=== PATIENT | male | born 1955 | race Caucasian/White ===

== ENCOUNTER 2016-03-20 16:09 | Inpatient (IN) | payer MEDICARE ==
[~2016-03-20] VITALS: Ht 182.9 cm; Wt 62.2 kg
[2016-03-20] MEDS ORDERED: SODIUM CHLORIDE 0.9% 1,000 ML ONE (21:18)
[2016-03-20] MEDS ORDERED: SODIUM CHLORIDE 0.9% 100 ML IV ONE (21:45)
[2016-03-20] MEDS ORDERED: CEFTRIAXONE 1 GM VIAL ONE (21:45)
[2016-03-20] MEDS ORDERED: HALOPERIDOL 5 MG/ML VIAL ONE (22:21)
[2016-03-20] MEDS ORDERED: DIPHENHYDRAMINE 50 MG/ML VIAL ONE (22:21)
[2016-03-20] MEDS ORDERED: LORAZEPAM 2 MG/ML VIAL ONE (22:22)
[2016-03-21] VITALS (9 sets, daily range): BP systolic 100–139; RESP 13–16; TEMP 97.4–98.6; Ht 182.9 cm; Wt 62.2 kg
[2016-03-21] MEDS ORDERED: DIPHENHYDRAMINE 50 MG/ML VIAL ONE (01:43)
[2016-03-21] MEDS ORDERED: LORAZEPAM 2 MG/ML VIAL ONE (01:44)
[2016-03-21] MEDS ORDERED: HALOPERIDOL 5 MG/ML VIAL ONE (01:44)
[2016-03-21] MEDS ORDERED: BISACODYL 10 MG SUPP RECTAL PRN (03:15)
[2016-03-21] MEDS ORDERED: SALINE FLUSH 10 ML FLUSH PRN (03:15)
[2016-03-21] MEDS ORDERED: ALU/MAG/SIM 30 ML UDC PO PRN (03:15)
[2016-03-21] MEDS ORDERED: BISACODYL EC 5 MG TAB PO PRN (03:15)
[2016-03-21] MEDS ORDERED: HALOPERIDOL 5 MG/ML VIAL IV ONE (03:15)
[2016-03-21] MEDS ORDERED: ONDANSETRON 4 MG VIAL IV PRN (03:15)
[2016-03-21] MEDS: SODIUM CHLORIDE 0.9% FLUSH BAG 500 ML IV SCH (08:47)
[2016-03-21] MEDS: SALINE FLUSH 10 ML FLUSH SCH ×2 (08:48→20:56)
[2016-03-21] MEDS: CEFTRIAXONE 1 GM in SODIUM CHLORIDE 0.9% 50 ML IV SCH (08:48)
[2016-03-21] MEDS: LACT RINGERS 1,000 ML IV SCH (13:13)
[2016-03-21] MEDS: LORAZEPAM 2 MG/ML VIAL IV PRN (20:55)
[2016-03-21] MEDS: TRAZODONE 50 MG TAB PO SCH (20:56)
[2016-03-22] MEDS: THIAMINE 200 MG/2 ML VIAL IM SCH ×3 (00:59→15:08)
[2016-03-22 03:29] VITALS: BP_SYST 131; RESP 16; TEMP 97.5
[2016-03-22] MEDS: SODIUM CHLORIDE 0.9% FLUSH BAG 500 ML IV SCH (06:00)
[2016-03-22 07:19] VITALS: BP_SYST 119; RESP 16; TEMP 97.5
[2016-03-22] MEDS: SALINE FLUSH 10 ML FLUSH SCH ×2 (08:00→20:00)
[2016-03-22] MEDS: CEFTRIAXONE 1 GM in SODIUM CHLORIDE 0.9% 50 ML IV SCH (08:53)
[2016-03-22 11:50] VITALS: BP_SYST 129; RESP 16; TEMP 97.6
[2016-03-22] MEDS: COMBIGAN OP SOLN EYE LT SCH ×2 (12:11→20:49)
[2016-03-22] MEDS: PREDNISOLONE ACET 1% OP SUSP EYE LT SCH ×3 (13:00→20:48)
[2016-03-22 15:30] VITALS: BP_SYST 131; RESP 18; TEMP 97.6
[2016-03-22] MEDS: LACT RINGERS 1,000 ML IV SCH (16:11)
[2016-03-22] MEDS: LORAZEPAM 2 MG/ML VIAL IV PRN (18:58)
[2016-03-22 19:39] VITALS: BP_SYST 140; RESP 20; TEMP 99.1
[2016-03-22] MEDS: BIMATOPROST 0.01% OP SOLN 2.5 ML EYE LT SCH (20:49)
[2016-03-22] MEDS: TRAZODONE 50 MG TAB PO SCH (20:50)
[2016-03-23] VITALS (7 sets, daily range): BP systolic 113–184; RESP 18–20; TEMP 97.3–99
[2016-03-23] MEDS: LORAZEPAM 2 MG/ML VIAL IV PRN ×3 (05:29→16:12)
[2016-03-23] MEDS: SODIUM CHLORIDE 0.9% FLUSH BAG 500 ML IV SCH (06:00)
[2016-03-23] MEDS: SALINE FLUSH 10 ML FLUSH SCH ×2 (09:39→20:00)
[2016-03-23] MEDS: PREDNISOLONE ACET 1% OP SUSP EYE LT SCH ×4 (09:43→20:13)
[2016-03-23] MEDS: COMBIGAN OP SOLN EYE LT SCH ×2 (09:43→20:16)
[2016-03-23] MEDS: THIAMINE 200 MG/2 ML VIAL IM SCH ×4 (09:45→23:27)
[2016-03-23] MEDS: CEFTRIAXONE 1 GM in SODIUM CHLORIDE 0.9% 50 ML IV SCH (09:46)
[2016-03-23] MEDS: HALOPERIDOL 5 MG/ML VIAL IV PRN ×2 (13:51→20:00)
[2016-03-23] MEDS: BIMATOPROST 0.01% OP SOLN 2.5 ML EYE LT SCH (20:03)
[2016-03-23] MEDS: LACT RINGERS 1,000 ML IV SCH (20:09)
[2016-03-23] MEDS: TRAZODONE 50 MG TAB PO SCH (20:14)
[2016-03-24] VITALS (7 sets, daily range): BP systolic 118–170; RESP 18–20; TEMP 97.4–98.2
[2016-03-24] MEDS: SODIUM CHLORIDE 0.9% FLUSH BAG 500 ML IV SCH (06:00)
[2016-03-24] MEDS: SALINE FLUSH 10 ML FLUSH SCH ×2 (07:50→21:55)
[2016-03-24] MEDS: COMBIGAN OP SOLN EYE LT SCH ×2 (08:50→21:54)
[2016-03-24] MEDS: PREDNISOLONE ACET 1% OP SUSP EYE LT SCH ×4 (08:50→21:54)
[2016-03-24] MEDS: THIAMINE 200 MG/2 ML VIAL IM SCH ×2 (08:51→16:27)
[2016-03-24] MEDS: HALOPERIDOL 5 MG/ML VIAL IV PRN ×2 (08:51→18:41)
[2016-03-24] MEDS: CEFTRIAXONE 1 GM in SODIUM CHLORIDE 0.9% 50 ML IV SCH (08:52)
[2016-03-24] MEDS: QUEtiapine 25 MG TAB PO SCH ×2 (12:06→21:55)
[2016-03-24] MEDS: LORAZEPAM 2 MG/ML VIAL IV PRN (21:51)
[2016-03-24] MEDS: BIMATOPROST 0.01% OP SOLN 2.5 ML EYE LT SCH (21:54)
[2016-03-24] MEDS: TRAZODONE 50 MG TAB PO SCH (21:55)
[2016-03-25] VITALS (9 sets, daily range): BP systolic 106–156; RESP 16–18; TEMP 97.4–98
[2016-03-25] MEDS: THIAMINE 200 MG/2 ML VIAL IM SCH ×2 (00:22→09:33)
[2016-03-25] MEDS: COMBIGAN OP SOLN EYE LT SCH ×2 (09:32→21:15)
[2016-03-25] MEDS: PREDNISOLONE ACET 1% OP SUSP EYE LT SCH ×4 (09:32→21:15)
[2016-03-25] MEDS: SALINE FLUSH 10 ML FLUSH SCH ×2 (09:33→21:16)
[2016-03-25] MEDS: CEFTRIAXONE 1 GM in SODIUM CHLORIDE 0.9% 50 ML IV SCH (09:34)
[2016-03-25] MEDS: QUEtiapine 25 MG TAB PO SCH ×2 (09:34→21:17)
[2016-03-25] MEDS: SODIUM CHLORIDE 0.9% FLUSH BAG 500 ML IV SCH (09:46)
[2016-03-25] MEDS: THIAMINE 100 MG TAB PO SCH ×3 (12:30→21:17)
[2016-03-25] MEDS: LORAZEPAM 2 MG/ML VIAL IV PRN ×2 (12:46→20:10)
[2016-03-25] MEDS: HALOPERIDOL 5 MG/ML VIAL IV PRN (14:05)
[2016-03-25] MEDS: BIMATOPROST 0.01% OP SOLN 2.5 ML EYE LT SCH (21:16)
[2016-03-25] MEDS: TRAZODONE 50 MG TAB PO SCH (21:17)
[2016-03-26] VITALS (7 sets, daily range): BP systolic 86–156; RESP 16–20; TEMP 97.5–98.1
[2016-03-26] MEDS: HALOPERIDOL 5 MG/ML VIAL IV PRN ×2 (00:19→07:48)
[2016-03-26] MEDS: SODIUM CHLORIDE 0.9% FLUSH BAG 500 ML IV SCH (06:29)
[2016-03-26] MEDS ORDERED: MISSING DOSE XX ONE (06:40)
[2016-03-26] MEDS: COMBIGAN OP SOLN EYE LT SCH ×2 (08:13→21:56)
[2016-03-26] MEDS: QUEtiapine 25 MG TAB PO SCH ×2 (08:14→21:55)
[2016-03-26] MEDS: THIAMINE 100 MG TAB PO SCH ×3 (08:14→21:55)
[2016-03-26] MEDS: PREDNISOLONE ACET 1% OP SUSP EYE LT SCH ×4 (08:15→21:56)
[2016-03-26] MEDS: CEFTRIAXONE 1 GM in SODIUM CHLORIDE 0.9% 50 ML IV SCH (08:15)
[2016-03-26] MEDS: SALINE FLUSH 10 ML FLUSH SCH ×2 (08:16→21:56)
[2016-03-26] MEDS: TRAZODONE 50 MG TAB PO SCH (21:55)
[2016-03-26] MEDS: BIMATOPROST 0.01% OP SOLN 2.5 ML EYE LT SCH (21:56)
[2016-03-27] VITALS (7 sets, daily range): BP systolic 99–153; RESP 16–20; TEMP 97.3–98
[2016-03-27] MEDS: SODIUM CHLORIDE 0.9% FLUSH BAG 500 ML IV SCH (06:38)
[2016-03-27] MEDS ORDERED: MISSING DOSE XX ONE (07:50)
[2016-03-27] MEDS: CEFTRIAXONE 1 GM in SODIUM CHLORIDE 0.9% 50 ML IV SCH (08:43)
[2016-03-27] MEDS: SALINE FLUSH 10 ML FLUSH SCH ×2 (08:43→20:00)
[2016-03-27] MEDS: PREDNISOLONE ACET 1% OP SUSP EYE LT SCH ×4 (08:44→20:02)
[2016-03-27] MEDS: COMBIGAN OP SOLN EYE LT SCH ×2 (08:44→20:02)
[2016-03-27] MEDS: THIAMINE 100 MG TAB PO SCH ×3 (08:47→20:01)
[2016-03-27] MEDS: QUEtiapine 25 MG TAB PO SCH ×2 (08:47→20:01)
[2016-03-27] MEDS: LORAZEPAM 2 MG/ML VIAL IV PRN ×2 (13:12→17:41)
[2016-03-27] MEDS: HALOPERIDOL 5 MG/ML VIAL IV PRN ×2 (13:40→20:01)
[2016-03-27] MEDS: TRAZODONE 50 MG TAB PO SCH (20:01)
[2016-03-27] MEDS: BIMATOPROST 0.01% OP SOLN 2.5 ML EYE LT SCH (20:02)
[2016-03-28] VITALS (11 sets, daily range): BP systolic 90–163; RESP 13–18; TEMP 97.3–97.9
[2016-03-28] MEDS: SODIUM CHLORIDE 0.9% FLUSH BAG 500 ML IV SCH ×2 (05:36→21:10)
[2016-03-28] MEDS ORDERED: MISSING DOSE XX ONE (08:45)
[2016-03-28] MEDS: COMBIGAN OP SOLN EYE LT SCH ×2 (09:17→20:56)
[2016-03-28] MEDS: PREDNISOLONE ACET 1% OP SUSP EYE LT SCH ×4 (09:17→21:04)
[2016-03-28] MEDS: THIAMINE 100 MG TAB PO SCH ×3 (09:18→20:59)
[2016-03-28] MEDS: SALINE FLUSH 10 ML FLUSH SCH ×2 (09:18→20:54)
[2016-03-28] MEDS: QUEtiapine 25 MG TAB PO SCH ×2 (09:18→20:59)
[2016-03-28] MEDS: HALOPERIDOL 5 MG/ML VIAL IV PRN (12:37)
[2016-03-28] MEDS: TRAZODONE 50 MG TAB PO SCH (20:59)
[2016-03-28] MEDS: BIMATOPROST 0.01% OP SOLN 2.5 ML EYE LT SCH (20:59)
[2016-03-29] VITALS (8 sets, daily range): BP systolic 108–188; RESP 16–20; TEMP 97.2–100
[2016-03-29] MEDS: SALINE FLUSH 10 ML FLUSH SCH ×2 (08:56→20:25)
[2016-03-29] MEDS: COMBIGAN OP SOLN EYE LT SCH ×2 (08:57→20:24)
[2016-03-29] MEDS: QUEtiapine 25 MG TAB PO SCH ×2 (08:58→20:24)
[2016-03-29] MEDS: THIAMINE 100 MG TAB PO SCH ×3 (08:58→20:24)
[2016-03-29] MEDS: PREDNISOLONE ACET 1% OP SUSP EYE LT SCH ×4 (09:00→20:24)
[2016-03-29] MEDS: MAG HYDROX 30 ML UDC PO PRN (09:11)
[2016-03-29] MEDS: TRAZODONE 50 MG TAB PO SCH (20:24)
[2016-03-29] MEDS: BIMATOPROST 0.01% OP SOLN 2.5 ML EYE LT SCH (20:25)
[2016-03-30] VITALS (7 sets, daily range): BP systolic 91–169; RESP 16–20; TEMP 97.4–97.8
[2016-03-30] MEDS: SODIUM CHLORIDE 0.9% FLUSH BAG 500 ML IV SCH (05:16)
[2016-03-30] MEDS: QUEtiapine 25 MG TAB PO SCH ×2 (10:25→22:31)
[2016-03-30] MEDS: THIAMINE 100 MG TAB PO SCH ×3 (10:26→20:35)
[2016-03-30] MEDS: SALINE FLUSH 10 ML FLUSH SCH ×2 (10:26→20:00)
[2016-03-30] MEDS: PREDNISOLONE ACET 1% OP SUSP EYE LT SCH ×4 (10:27→20:36)
[2016-03-30] MEDS: COMBIGAN OP SOLN EYE LT SCH ×2 (10:27→20:36)
[2016-03-30] MEDS: LORAZEPAM 2 MG/ML VIAL IV PRN (11:31)
[2016-03-30] MEDS ORDERED: HALOPERIDOL DECANOATE 100 MG/ML IM PRN (12:30)
[2016-03-30] MEDS: TRAZODONE 50 MG TAB PO SCH (20:36)
[2016-03-30] MEDS: BIMATOPROST 0.01% OP SOLN 2.5 ML EYE LT SCH (20:37)
[2016-03-30] MEDS ORDERED: MISSING DOSE XX ONE (21:35)
[2016-03-30] MEDS: LORAZEPAM 0.5 MG TAB PO PRN (23:48)
[2016-03-31 02:43] VITALS: BP_SYST 131; RESP 18; TEMP 97.4
[2016-03-31] MEDS: SODIUM CHLORIDE 0.9% FLUSH BAG 500 ML IV SCH (06:00)
[2016-03-31] MEDS: LORAZEPAM 0.5 MG TAB PO PRN (06:55)
[2016-03-31 07:19] VITALS: BP_SYST 181; RESP 18
[2016-03-31] MEDS: SALINE FLUSH 10 ML FLUSH SCH ×2 (08:00→21:41)
[2016-03-31] MEDS: QUEtiapine 25 MG TAB PO SCH ×2 (08:38→21:41)
[2016-03-31] MEDS: THIAMINE 100 MG TAB PO SCH ×3 (08:38→21:41)
[2016-03-31] MEDS: COMBIGAN OP SOLN EYE LT SCH ×2 (08:38→21:38)
[2016-03-31] MEDS: PREDNISOLONE ACET 1% OP SUSP EYE LT SCH ×4 (08:39→21:39)
[2016-03-31] MEDS: BIMATOPROST 0.01% OP SOLN 2.5 ML EYE LT SCH (08:39)
[2016-03-31 12:05] VITALS: BP_SYST 107; RESP 14
[2016-03-31 15:54] VITALS: BP_SYST 128; RESP 16; TEMP 97.9
[2016-03-31 19:31] VITALS: BP_SYST 116; RESP 18; TEMP 97.9
[2016-03-31] MEDS: TRAZODONE 50 MG TAB PO SCH (21:41)
[2016-03-31] MEDS: HALOPERIDOL 5 MG/ML VIAL IM PRN (22:39)
[2016-04-01] VITALS (7 sets, daily range): BP systolic 101–197; RESP 16–20; TEMP 97.3–97.6
[2016-04-01] MEDS: SODIUM CHLORIDE 0.9% FLUSH BAG 500 ML IV SCH (05:14)
[2016-04-01] MEDS: SALINE FLUSH 10 ML FLUSH SCH ×2 (08:00→20:00)
[2016-04-01] MEDS: QUEtiapine 25 MG TAB PO SCH ×2 (09:01→20:26)
[2016-04-01] MEDS: BIMATOPROST 0.01% OP SOLN 2.5 ML EYE LT SCH (09:01)
[2016-04-01] MEDS: THIAMINE 100 MG TAB PO SCH ×3 (09:01→20:26)
[2016-04-01] MEDS: COMBIGAN OP SOLN EYE LT SCH ×2 (09:01→20:24)
[2016-04-01] MEDS: PREDNISOLONE ACET 1% OP SUSP EYE LT SCH ×4 (09:01→20:26)
[2016-04-01] MEDS: LORAZEPAM 0.5 MG TAB PO PRN (15:22)
[2016-04-01] MEDS: HALOPERIDOL 5 MG/ML VIAL IM PRN (16:03)
[2016-04-01] MEDS: TRAZODONE 50 MG TAB PO SCH (20:26)
[2016-04-02] VITALS (7 sets, daily range): BP systolic 90–153; RESP 16–20; TEMP 97.3–97.9
[2016-04-02] MEDS: SODIUM CHLORIDE 0.9% FLUSH BAG 500 ML IV SCH (06:00)
[2016-04-02] MEDS: HALOPERIDOL 5 MG/ML VIAL IM PRN (06:49)
[2016-04-02] MEDS: SALINE FLUSH 10 ML FLUSH SCH ×2 (08:00→20:00)
[2016-04-02] MEDS ORDERED: MISSING DOSE XX ONE (11:55)
[2016-04-02] MEDS: PREDNISOLONE ACET 1% OP SUSP EYE LT SCH ×4 (12:13→20:06)
[2016-04-02] MEDS: COMBIGAN OP SOLN EYE LT SCH ×2 (12:13→20:06)
[2016-04-02] MEDS: LORAZEPAM 0.5 MG TAB PO PRN ×2 (12:14→17:14)
[2016-04-02] MEDS: THIAMINE 100 MG TAB PO SCH ×3 (12:18→20:05)
[2016-04-02] MEDS: QUEtiapine 25 MG TAB PO SCH ×2 (12:19→20:04)
[2016-04-02] MEDS ORDERED: QUEtiapine 25 MG TAB PO ONE (13:55)
[2016-04-02] MEDS: BIMATOPROST 0.01% OP SOLN 2.5 ML EYE LT SCH (20:05)
[2016-04-02] MEDS: TRAZODONE 50 MG TAB PO SCH (20:05)
[2016-04-03] VITALS (9 sets, daily range): BP systolic 98–195; RESP 15–20; TEMP 97–98.4
[2016-04-03] MEDS: SODIUM CHLORIDE 0.9% FLUSH BAG 500 ML IV SCH (06:00)
[2016-04-03] MEDS: SALINE FLUSH 10 ML FLUSH SCH ×2 (08:00→19:43)
[2016-04-03] MEDS: PREDNISOLONE ACET 1% OP SUSP EYE LT SCH ×4 (10:09→20:00)
[2016-04-03] MEDS: COMBIGAN OP SOLN EYE LT SCH ×2 (10:11→19:54)
[2016-04-03] MEDS: THIAMINE 100 MG TAB PO SCH ×3 (10:11→20:00)
[2016-04-03] MEDS: QUEtiapine 25 MG TAB PO SCH ×2 (10:11→20:00)
[2016-04-03] MEDS: LORAZEPAM 0.5 MG TAB PO PRN (16:16)
[2016-04-03] MEDS: MAG HYDROX 30 ML UDC PO PRN (19:55)
[2016-04-03] MEDS: TRAZODONE 50 MG TAB PO SCH (20:00)
[2016-04-03] MEDS: BIMATOPROST 0.01% OP SOLN 2.5 ML EYE LT SCH (20:00)
[2016-04-04] MEDS: SODIUM CHLORIDE 0.9% FLUSH BAG 500 ML IV SCH (03:34)
[2016-04-04 04:38] VITALS: BP_SYST 139; RESP 16; TEMP 97.6
[2016-04-04 07:27] VITALS: BP_SYST 168; RESP 18; TEMP 98
[2016-04-04] MEDS: SALINE FLUSH 10 ML FLUSH SCH ×2 (07:39→19:48)
[2016-04-04] MEDS: THIAMINE 100 MG TAB PO SCH ×3 (08:19→19:46)
[2016-04-04] MEDS: COMBIGAN OP SOLN EYE LT SCH ×2 (08:20→19:48)
[2016-04-04] MEDS: QUEtiapine 25 MG TAB PO SCH ×2 (08:20→19:47)
[2016-04-04] MEDS: PREDNISOLONE ACET 1% OP SUSP EYE LT SCH ×4 (08:20→19:47)
[2016-04-04] MEDS: LORAZEPAM 0.5 MG TAB PO PRN ×2 (14:37→19:47)
[2016-04-04 17:39] VITALS: BP_SYST 115; RESP 18; TEMP 97.8
[2016-04-04 19:34] VITALS: BP_SYST 160; RESP 20; TEMP 97.8
[2016-04-04] MEDS: TRAZODONE 50 MG TAB PO SCH (19:47)
[2016-04-04] MEDS: BIMATOPROST 0.01% OP SOLN 2.5 ML EYE LT SCH (19:48)
[2016-04-05 00:36] VITALS: BP_SYST 126; RESP 16; TEMP 97.9
[2016-04-05 04:35] VITALS: BP_SYST 83; RESP 16; TEMP 97.7
[2016-04-05] MEDS: SODIUM CHLORIDE 0.9% FLUSH BAG 500 ML IV SCH (05:50)
[2016-04-05] MEDS: LORAZEPAM 0.5 MG TAB PO PRN (05:51)
[2016-04-05 07:25] VITALS: BP_SYST 105; RESP 18; TEMP 97.4
[2016-04-05] MEDS: SALINE FLUSH 10 ML FLUSH SCH ×2 (08:00→20:00)
[2016-04-05] MEDS: COMBIGAN OP SOLN EYE LT SCH ×2 (08:19→20:58)
[2016-04-05] MEDS: PREDNISOLONE ACET 1% OP SUSP EYE LT SCH ×4 (08:19→20:58)
[2016-04-05] MEDS: QUEtiapine 25 MG TAB PO SCH ×2 (08:20→21:39)
[2016-04-05] MEDS: THIAMINE 100 MG TAB PO SCH ×3 (08:20→20:57)
[2016-04-05 10:28] VITALS: BP_SYST 118; RESP 18; TEMP 97.2
[2016-04-05] MEDS: TRAZODONE 50 MG TAB PO SCH (20:57)
[2016-04-05] MEDS: BIMATOPROST 0.01% OP SOLN 2.5 ML EYE LT SCH (20:58)
[2016-04-05] MEDS ORDERED: MISSING DOSE XX ONE (21:05)
[2016-04-06] MEDS: SODIUM CHLORIDE 0.9% FLUSH BAG 500 ML IV SCH (05:31)
[2016-04-06 07:19] VITALS: BP_SYST 190; RESP 16; TEMP 97.5
[2016-04-06] MEDS: SALINE FLUSH 10 ML FLUSH SCH ×2 (07:20→21:46)
[2016-04-06] MEDS: QUEtiapine 25 MG TAB PO SCH ×2 (08:22→21:49)
[2016-04-06] MEDS: THIAMINE 100 MG TAB PO SCH ×3 (08:22→21:46)
[2016-04-06] MEDS: PREDNISOLONE ACET 1% OP SUSP EYE LT SCH ×4 (08:23→21:45)
[2016-04-06] MEDS: COMBIGAN OP SOLN EYE LT SCH ×2 (08:23→21:45)
[2016-04-06] MEDS ORDERED: MISSING DOSE XX ONE ×2 (09:30→13:50)
[2016-04-06 11:30] VITALS: BP_SYST 110; RESP 16
[2016-04-06] MEDS: MAG HYDROX 30 ML UDC PO PRN (12:28)
[2016-04-06] MEDS: POLYETHYLENE GLYCOL 17 GM PACKET PO SCH (12:28)
[2016-04-06] MEDS ORDERED: QUEtiapine 25 MG TAB PO SCH ×2 (14:00)
[2016-04-06 15:28] VITALS: BP_SYST 153; RESP 16; TEMP 98.2
[2016-04-06 20:08] VITALS: BP_SYST 115; RESP 18; TEMP 98.2
[2016-04-06] MEDS: BIMATOPROST 0.01% OP SOLN 2.5 ML EYE LT SCH (21:45)
[2016-04-06] MEDS: TRAZODONE 50 MG TAB PO SCH (21:46)
[2016-04-06 23:08] VITALS: BP_SYST 121; TEMP 98.3
[2016-04-06 23:09] VITALS: RESP 18
[2016-04-07 02:31] VITALS: BP_SYST 110; RESP 18; TEMP 97.8
[2016-04-07] MEDS: SODIUM CHLORIDE 0.9% FLUSH BAG 500 ML IV SCH (05:44)
[2016-04-07 07:23] VITALS: BP_SYST 95; RESP 20; TEMP 98.2
[2016-04-07] MEDS: QUEtiapine 25 MG TAB PO SCH (09:00)
[2016-04-07] MEDS: COMBIGAN OP SOLN EYE LT SCH (10:08)
[2016-04-07] MEDS: PREDNISOLONE ACET 1% OP SUSP EYE LT SCH ×3 (10:08→16:50)
[2016-04-07] MEDS: THIAMINE 100 MG TAB PO SCH ×3 (10:09→16:00)
[2016-04-07] MEDS: POLYETHYLENE GLYCOL 17 GM PACKET PO SCH ×2 (10:10→10:28)
[2016-04-07] MEDS: SALINE FLUSH 10 ML FLUSH SCH (10:10)
[2016-04-07 11:18] VITALS: BP_SYST 117; RESP 22; TEMP 98.1
[2016-04-07] MEDS ORDERED: MISSING DOSE XX ONE (12:40)
[2016-04-07 14:34] VITALS: BP_SYST 117; RESP 22; TEMP 98.1
[2016-04-07 15:39] VITALS: BP_SYST 105; RESP 20; TEMP 98.1
== END 2016-04-07 18:06 | DRG 689 ==
LOC: ENRESERVTM → ENRESERVDT → ER 16:09 → EDSEX 16:09 → EMR 16:10 → 3NT 03-21 02:25 → OBSVTOIN 03-21 15:02 → ENPENDDIS 03-21 15:02
PROVIDERS: ADMIT Internal Medicine; ATTEND Internal Medicine
DX: N39.0 Urinary tract infection, site not specified (principal); G92 Toxic encephalopathy; B96.20 Unspecified Escherichia coli [E. coli] as the cause of diseases classified elsewhere; E86.0 Dehydration; H27.10 Unspecified dislocation of lens; F03.90 Unspecified dementia, unspecified severity, without behavioral disturbance, psychotic disturbance, mood disturbance, and anxiety
CPT/HCPCS: 36415; 70450; 71010; 80048; 80053; 80307; 80320; 81001; 82140; 82553; 82607; 82746; 82947; 83605; 83735; 84443; 84484; 85025; 85610; 87077; 87088; 87186; 93005; 94799; 96361; 96365; 96375; 96376; 99219; 99232; 99233; 99239